=== PATIENT | female | born 2000 | race Two or more races ===

== ENCOUNTER 2025-02-22 10:56 | Emergency (ER) | payer MEDICAID, SELFPAY ==
[2025-02-22 11:22] VITALS: BP 121/79; PULSE 78; RESP 18; TEMP 36.8; O2SAT 98
--- NOTE | 2025-02-22 11:28 | EKG_ITS ---
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
--- NOTE | 2025-02-22 11:29 | PD.EDRME ---
Rapid Medical Screening Exam [facility] Arrival date/time: 02/22/25 10:56 24-year-old female with no known medical history presents to the emergency room with a chief complaint of a syncopal episode that occurred 30 minutes ago. Patient has having nausea and vomiting. Patient is currently . I have greeted and performed a focused initial assessment of this patient. A comprehensive ED assessment and evaluation of the patient, analysis of all test results, and completion of the medical decision making process will be conducted by additional ED providers. Chief Complaint: Nausea/Vomiting/Diarrhea Time Seen by Provider: 02/22/25 11:16 Vital signs: Vital Signs Temperature 98.3 F 02/22/25 11:22 Pulse Rate 78 02/22/25 11:22 Respiratory Rate 18 02/22/25 11:22 Blood Pressure 121/79 02/22/25 11:22 Pulse Oximetry (%) 98 02/22/25 11:22 Oxygen Delivery Method Room Air 02/22/25 11:22 Vital signs reviewed by provider: Yes
[2025-02-22] MEDS: ONDANSETRON ODT 4 MG TABRAP PO (11:34)
[2025-02-22 12:40] LABS: Basophils # (Auto) 0.0 Thou/mm3 (0.0-0.2); Basophils % (Auto) 1 % (0-2.5); Eosinophils # (Auto) 0.0 Thou/mm3 (0.0-0.5); Eosinophils % (Auto) 0 % (0-10); Hematocrit 37.6 % (36.0-46.0); Hemoglobin 12.8 g/dL (12.0-16.0); Immature Granulocytes Auto 0.02 Thou/mm3 (0.00-0.00); Lymphocytes # (Auto) 1.9 Thou/mm3 (1.0-4.8); Lymphocytes % (Auto) 24 % (10-50); Mean Corpuscular HGB Conc 34.0 g/dl (31.0-37.0); Mean Corpuscular Hemoglobin 29.9 pg (25.0-35.0); Mean Corpuscular Volume 88 fL (80-100); Monocytes # (Auto) 0.3 Thou/mm3 (0.0-0.8); Monocytes % (Auto) 4 % (0-12); Neutrophils # (Auto) 5.6 Thou/mm3 (1.8-7.7); Neutrophils % (Auto) 71 % (37-80); Nucleated Red Blood Cell # 0.00 Thou/mm3 (0.00-0.00); Nucleated Red Blood Cell % 0 /100 WBC (0); Platelet Count 242 Thou/mm3 (140-440); RDW Standard Deviation 39.9 fL (36.4-46.3); Red Blood Count 4.28 Miln/mm3 (4.00-5.20); White Blood Count 7.9 Thou/mm3 (3.6-11.0)
[2025-02-22 12:59] LABS: B-Type Natriuretic Peptide 24 pg/mL (0-100)
[2025-02-22 13:01] LABS: Alanine Aminotransferase 11 U/L (10-49); Albumin, Serum 4.5 gm/dL (3.5-5.0); Albumin/Globulin Ratio 2.0 (1.2-2.2); Alkaline Phosphatase 59 U/L (46-116); Anion Gap 10 (7-16); Aspartate Amino Transferase 15 U/L (0-34); BUN/Creatinine Ratio 10 Ratio (12-20); Bilirubin,Total 0.6 mg/dL (0.3-1.2); Blood Urea Nitrogen < 5 mg/dL (9-23); Calcium 9.7 mg/dL (8.3-10.6); Calcium (Corrected) 9.7 mg/dL (8.5-10.1); Carbon Dioxide 23.6 mMol/L (20.0-31.0); Chloride 105 mMol/L (98-107); Creatinine (Component) 0.5 mg/dL (0.6-1.3); Estimated Creatinine Clearance 137.2 mL/min (>60); Globulin 2.3 gm/dL (2.3-3.5); Glucose 78 mg/dL (74-106); Osmolality,Calculated 273 (275-295); Potassium 3.8 mMol/L (3.4-5.1); Sodium 139 mMol/L (136-145); Total Protein 6.8 gm/dL (5.7-8.2); Troponin I < 0.002 ng/mL (0.0-0.045); eGFR > 60 See Note
--- NOTE | 2025-02-22 14:59 | EDNOTE_ITS ---
<Statement entered by Grecia Saldivar MD - 02/22/25 15:44> As co-signing physician, I was present and available for consult prn. I concur with the plan and care as documented by the midlevel provider. ED General RME/HPI General Chief complaint: Nausea/Vomiting/Diarrhea Stated complaint: PASSED OUT 30 MIN AGO, PREG, N/V Time Seen by Provider: 02/22/25 11:16 Source: patient Arrival date/time: 02/22/25 10:56 24-year-old female with no known medical history presents to the emergency room with a chief complaint of a syncopal episode that occurred 30 minutes ago. Patient has having nausea and vomiting. Patient is currently . Mode of arrival: ambulatory Limitations: no limitations RME / HPI RME / HPI narrative: 02/22/25 10:56 24-year-old female with no known medical history presents to the emergency room with a chief complaint of a syncopal episode that occurred 30 minutes ago. Patient has having nausea and vomiting. Patient is currently . I have greeted and performed a focused initial assessment of this patient. A comprehensive ED assessment and evaluation of the patient, analysis of all test results, and completion of the medical decision making process will be conducted by additional ED providers. Related Data Previous Rx's ?Medication ?Instructions ?Recorded ondansetron 4 mg disintegrating 4 mg PO Q8H PRN nausea and 02/22/25 tablet vomiting #14 tabs Allergies Allergy/AdvReac Type Severity Reaction Status Date / Time No Known Allergies Allergy Verified 02/22/25 10:58 Review of Systems Review of Systems Systems Reviewed: All systems reviewed, normal except as documented Constitutional Constitutional: Reports system reviewed and no additional complaints, except as documented, Denies fatigue, Denies fever(s), Denies headache(s) and Denies weakness Eyes Eyes: Reports system reviewed and no additional complaints, except as documented, Denies blurry vision and Denies change in vision ENT Ears, Nose, Mouth, and Throat: Reports system reviewed and no additional complaints, except as documented, Denies otalgia, Denies headache(s), Denies nasal congestion, Denies throat swelling and Denies vertigo Cardiovascular Cardiovascular: Reports system reviewed and no additional complaints, except as documented, Denies chest pain, Denies dyspnea and Denies dyspnea on exertion Respiratory Respiratory: Reports system reviewed and no additional complaints, except as documented, Denies chest congestion, Denies cough, Denies dyspnea, Denies dyspnea on exertion and Denies wheezing Gastrointestinal Gastrointestinal: Reports system reviewed and no additional complaints, except as documented, Denies abdominal pain, Denies cramping, Reports nausea and Reports vomiting Genitourinary Genitourinary: Reports system reviewed and no additional complaints, except as documented Musculoskeletal Musculoskeletal: Reports system reviewed and no additional complaints, except as documented and Denies back pain Integumentary/Breasts Skin/Breast: Reports system reviewed and no additional complaints, except as documented and Denies wounds Neurologic Neurologic: Reports system reviewed and no additional complaints, except as documented, Denies confusion, Denies headache(s), Denies lack of coordination, Denies vertigo and Denies weakness Psychiatric Psychiatric: Reports system reviewed and no additional complaints, except as documented, Denies anxiety, Denies confusion, Denies depression, Denies paranoia, Denies suicidal ideation and Denies tactile hallucinations Endocrine Endocrine: Reports system reviewed and no additional complaints, except as documented and Denies fatigue Hematologic/Lymphatic Hematologic/Lymphatic: Reports system reviewed and no additional complaints, except as documented and Denies lymphadenopathy Allergic/Immunologic Allergic/Immunologic: Reports system reviewed and no additional complaints, except as documented, Denies throat swelling, Denies urticaria and Denies wheezing Past Medical History Past Medical History NEUROLOGIC: Negative Neurological Disorders or Seizures CARDIAC: Negative Cardiac Disorders or Congestive Heart Failure RESPIRATORY: Negative Chronic Obstructive Pulmonary Disease (COPD) or Asthma GASTROINTESTINAL: Negative Gastrointestinal Disorders GENITOURINARY: Negative Renal Disease REPRODUCTIVE: Positive Previous Pregnancies MUSCULOSKELETAL: Negative Musculoskeletal Disorders ENDOCRINE: Negative Endocrine Disorders, Diabetes Mellitus Type 1 or Diabetes Mellitus Type 2 HEMATOLOGIC: Negative Blood Disorders or Sickle Cell Disease PSYCHO/SOCIAL: Positive Behavior Problems OTHER HISTORY: Negative Autoimmune Disease, Blood Transfusions, Blood Transfusion Reaction, Anesthesia Reactions or MRSA Family History FAMILY HISTORY: Positive Family Cardiac Disorders and Family Cancer Surgical History SURGICAL: Negative Section Social History SMOKING STATUS: Never smoker SUBSTANCE USE: does not use ED Exam General Limitations: Present no limitations General appearance: Present alert and in no apparent distress Head Head exam: Present atraumatic Eye Eye exam: Present normal appearance, PERRL and EOMI ENT ENT exam: Present normal exam, normal oropharynx and mucous membranes moist Neck Neck exam: Present normal inspection, full ROM and trachea midline Chest Chest inspection: Present normal inspection and symmetric chest wall rise Respiratory Respiratory exam: Present normal lung sounds bilaterally Cardiovascular Cardiovascular exam: Present regular rate, normal rhythm and normal heart sounds Abdominal Exam Abdominal exam: Present soft and normal bowel sounds; Absent distention, tenderness, guarding, rebound or rigidity Extremities Exam Extremities exam: Present normal inspection and full ROM Back Exam Back exam: Present normal inspection and full ROM Neurological Exam Neurological exam: Present alert, oriented X3 and CN II-XII intact Psychiatric Psychiatric exam: Present normal affect and normal mood Skin Skin exam: Present warm, dry, intact and normal color Course Quality Measures none Orders Category Date Time Status EKG (ED ONLY) *Do not use* NOW Care 02/22/25 11:29 Completed EKG (ED Only) Stat Exams 02/22/25 11:28 Draft BNP [B-Type Natriuretic Peptide] Stat Lab 02/22/25 12:02 Completed CBC Stat Lab 02/22/25 12:02 Completed CMP [Comprehensive Metabolic Panel] Stat Lab 02/22/25 12:02 Completed Troponin I Stat Lab 02/22/25 12:02 Completed Ondansetron Odt [Zofran Odt] Med 02/22/25 11:28 Discontinued 4 mg PO X1 ONE Vital Signs Vital signs: Vital Signs Temperature 98.3 F 02/22/25 11:22 Pulse Rate 78 02/22/25 11:22 Respiratory Rate 18 02/22/25 11:22 Blood Pressure 121/79 02/22/25 11:22 Pulse Oximetry (%) 98 02/22/25 11:22 Oxygen Delivery Method Room Air 02/22/25 11:22 Discharge Plan Plan Patient Disposition: HOME (Self Care) Discharge Disposition comment: Stable Prescriptions/Referrals Prescriptions/Med Rec: New ondansetron 4 mg tablet,disintegrating 4 mg PO Q8H PRN (Reason: nausea and vomiting) Qty: 14 0RF Referrals: Donovan Curtis MD [Primary Care Provider] - In 1 week Problem List Clinical Impression: Vomiting affecting Patient/Caregiver Discharge Instructions Education Materials: ED Vomiting (Adult) Additional Instructions: Please follow-up with your JUMP IRON MACHINE PRESSER in the next 24 to 48 hours Your blood work and cardiac examination was within normal limits Medication was sent to your pharmacy to help you with your nausea and your vomiting For any evidence of worsening signs or symptoms return to the emergency room i mmediately Print Language: Guinean Stand Alone Forms: Felicia Award Info., Patient Portal Info Letter CHRISTIANO/KAREN Supervising Physician TARAH Supervising Physician: Dr. SALDIVAR [facility] Narrative MDM hospital course: 24-year-old female with no known medical history presents to the emergency room with a chief complaint of a syncopal episode that occurred 30 minutes ago. Patient has having nausea and vomiting. Patient is currently . Patient is hemodynamically stable and in no apparent distress. CBC CMP urinalysis are all within normal limits. The patient was given Zofran with improvement of her symptoms Patient was discharged and educated to follow-up with primary care provider in the next 24 to 48 hours and return to the emergency room for any evidence of worsening signs or symptoms Clinical Information Provided by none Medical Records Reviewed None Meds/Rx Considered, not Ordered None Labs/Rad/Tests considered, not Ordered None Chronic Illness/Social Conditions which may negatively complicate care or outcome(s)-explain: None or not applicable EKG EKG not done Lab Interpretation Labs: none Imaging Imaging interpretation: none Medication Administration(s) none Medication Administration History Discontinued Medications Ondansetron HCl (Ondansetron Odt 4 Mg Tabrap) 4 mg PO X1 ONE; Protocol Stop: 02/22/25 11:29 Last Admin: 02/22/25 11:34 Dose: 4 mg Documented By: Diagnosis Differential diagnosis: Hyperemesis gravidarum/nausea vomiting/electrolyte imbalance/hypokalemia Differential dx and/or dx ruled out: Hyperemesis gravidarum/electrolyte imbalance/hypokalemia Most likely dx, and/or detailed dx discussion: Nausea vomiting Dispositon Disposition: Discharge Home
== END 2025-02-22 15:35 | disposition home or self-care (01) ==
PROVIDERS: Nurse Practitioner Family; Emergency Provider Emergency Medicine; PCP Family Medicine
DX: O21.9 Vomiting of pregnancy, unspecified (principal)
CPT/HCPCS: 36415; 80053; 83880; 84484; 85025; 93005; 99283; Q0162

== ENCOUNTER → 2025-04-16 | Outpatient (CLI) | payer MEDICAID, SELFPAY ==
--- NOTE | 2025-04-16 14:30 | XR_ITS ---
Examination: Complete OB ultrasound greater than 14 weeks Date and time of exam: April 16, 2025 1436 hours INDICATIONS: Irregular menses months Findings: Viable intrauterine single fetus with single amniotic sac presentation variable Cardiac motion 141 bpm Placenta anterior grade 1 Umbilical cord insertion seen Amniotic fluid index 11.5 cm Cervix 3.3 cm Ovaries obscured by bowel gas. Composite estimated gestational age based on BPD, head circumference, abdominal circumference, femur length is 16 weeks 5 days Estimated weight 160.5 g. Survey of intracranial anatomy, spinal anatomy, abdominal anatomy, four-chamber heart performed with no abnormalities identified. Impression: Viable intrauterine gestation variable presentation.
== END | disposition home or self-care (01) ==
PROVIDERS: PCP Obstetrics & Gynecology; Referring Provider Obstetrics & Gynecology; Visit Provider Obstetrics & Gynecology
DX: Z34.92 Encounter for supervision of normal pregnancy, unspecified, second trimester (principal); Z3A.16 16 weeks gestation of pregnancy
CPT/HCPCS: 76805

== ENCOUNTER 2025-05-02 13:59 | Emergency (ER) | payer MEDICAID, SELFPAY ==
[2025-05-02 14:11] VITALS: BP 128/80; PULSE 90; RESP 18; TEMP 36.8; O2SAT 98
--- NOTE | 2025-05-02 14:28 | XR_ITS ---
Examination: Complete OB ultrasound greater than 14 weeks Date and time of exam: May 02, 2025, 1503 hours INDICATIONS: Flank pain right-sided pelvic pain beginning today Findings: Viable intrauterine single fetus with single amniotic sac presentation breech Cardiac motion 144 bpm Placenta anterior grade 3 Umbilical cord insertion 3 vessels seen Amniotic fluid volume normal spine maternal right Cervix 3.0 cm Right ovary 2.2 cm arterial flow Left ovary 2.0 cm arterial flow. Composite estimated gestational age based on BPD, head circumference, abdominal circumference, femur length is 18 weeks 6 days Estimated weight 253 g. Survey of intracranial anatomy, spinal anatomy, abdominal anatomy, four-chamber heart performed with no abnormalities identified. Impression: Viable intrauterine gestation in breech presentation.
--- NOTE | 2025-05-02 14:30 | PD.EDRME ---
Rapid Medical Screening Exam E Arrival date/time: 05/02/25 13:59 This is a 24-year-old female that comes in the emergency room with complaints of right flank pain that radiates to her back. Patient is also having nausea vomiting. Patient states she is approximately 19 weeks . Patient is a 3 para 2. I have greeted and performed a focused initial assessment of this patient. Initial appropriate labs ordered at this time. A comprehensive ED assessment and evaluation of the patient and analysis of all test and completion of medical decision making process will be conducted by additional ED provider. Chief Complaint: Back Pain/Injury Time Seen by Provider: 05/02/25 14:13 Vital signs: Vital Signs Temperature 98.2 F 05/02/25 14:11 Pulse Rate 90 05/02/25 14:11 Respiratory Rate 18 05/02/25 14:11 Blood Pressure 128/80 05/02/25 14:11 Pulse Oximetry (%) 98 05/02/25 14:11 Oxygen Delivery Method Room Air 05/02/25 14:11 Exam: Alert and oriented, breathing even and unlabored GCS 15 diffuse lower back pain Clinical Impression: UA, CBC, BMP, lipase, ordered
[2025-05-02] MEDS: ONDANSETRON ODT 4 MG TABRAP PO (14:34)
[2025-05-02 14:58] LABS: Collection Type, Urine Voided; RBC,Urine 0 /hpf (0-3)
[2025-05-02 15:05] LABS: Basophils # (Auto) 0.0 Thou/mm3 (0.0-0.2); Basophils % (Auto) 1 % (0-2.5); Eosinophils # (Auto) 0.0 Thou/mm3 (0.0-0.5); Eosinophils % (Auto) 0 % (0-10); Hematocrit 34.5 % (36.0-46.0); Hemoglobin 11.7 g/dL (12.0-16.0); Immature Granulocytes Auto 0.04 Thou/mm3 (0.00-0.00); Lymphocytes # (Auto) 2.1 Thou/mm3 (1.0-4.8); Lymphocytes % (Auto) 26 % (10-50); Mean Corpuscular HGB Conc 33.9 g/dl (31.0-37.0); Mean Corpuscular Hemoglobin 30.4 pg (25.0-35.0); Mean Corpuscular Volume 90 fL (80-100); Monocytes # (Auto) 0.4 Thou/mm3 (0.0-0.8); Monocytes % (Auto) 5 % (0-12); Neutrophils # (Auto) 5.5 Thou/mm3 (1.8-7.7); Neutrophils % (Auto) 68 % (37-80); Nucleated Red Blood Cell # 0.00 Thou/mm3 (0.00-0.00); Nucleated Red Blood Cell % 0 /100 WBC (0); Platelet Count 258 Thou/mm3 (140-440); RDW Standard Deviation 43.1 fL (36.4-46.3); Red Blood Count 3.85 Miln/mm3 (4.00-5.20); White Blood Count 8.1 Thou/mm3 (3.6-11.0)
[2025-05-02 15:17] LABS: Amorphous Crystals,Urine Present (Absent); Bilirubin,Urine Negative (Negative); Blood,Urine Negative (Negative); Clarity,Urine Turbid (Clear/Hazy); Color,Urine Yellow (Lt Yel-Yel); Culture Indicated,Urine Not Indicated; Glucose, Urine Negative (Negative); Ketones,Urine Negative (Negative); Leukocyte Esterase,Urine Negative (Negative); Nitrite,Urine Negative (Negative); PH,Urine 7.5 (5.0-7.0); Protein,Urine Negative (Neg - Trace); Specific Gravity,Urine 1.017 (1.001-1.035); Squamous Epithelial Cell,Urine 5 /hpf (0-5); Urobilinogen,Urine 2.0 mg/dL (0.0-1.0); WBC,Urine < 1 /hpf (0-5)
[2025-05-02 15:29] LABS: Alanine Aminotransferase 24 U/L (10-49); Albumin, Serum 4.3 gm/dL (3.5-5.0); Albumin/Globulin Ratio 2.3 (1.2-2.2); Alkaline Phosphatase 74 U/L (46-116); Anion Gap 11 (7-16); Aspartate Amino Transferase 22 U/L (0-34); BUN/Creatinine Ratio 13 Ratio (12-20); Bilirubin,Total 0.4 mg/dL (0.3-1.2); Blood Urea Nitrogen < 5 mg/dL (9-23); Calcium 8.9 mg/dL (8.3-10.6); Calcium (Corrected) 8.9 mg/dL (8.5-10.1); Carbon Dioxide 24.3 mMol/L (20.0-31.0); Chloride 105 mMol/L (98-107); Creatinine (Component) 0.4 mg/dL (0.6-1.3); Globulin 1.9 gm/dL (2.3-3.5); Glucose 72 mg/dL (74-106); Lipase 38 U/L (12-53); Osmolality,Calculated 275 (275-295); Potassium 4.0 mMol/L (3.4-5.1); Sodium 140 mMol/L (136-145); Total Protein 6.2 gm/dL (5.7-8.2); eGFR > 60 See Note
--- NOTE | 2025-05-02 15:49 | PD.EDABDPN ---
ED Abdominal Pain RME/HPI General Chief Complaint: Abdominal Pain Stated complaint: PAIN R) SIDE AND BACK X 1 DAY; PREG 19WKS Time seen by provider: 05/02/25 14:13 Arrival date/time: 05/02/25 13:59 RME / HPI RME / HPI narrative: 05/02/25 13:59 This is a 24-year-old female that comes in the emergency room with complaints of right flank pain that radiates to her back. Patient is also having nausea vomiting. Patient states she is approximately 19 weeks . Patient is a 3 para 2. I have greeted and performed a focused initial assessment of this patient. Initial appropriate labs ordered at this time. A comprehensive ED assessment and evaluation of the patient and analysis of all test and completion of medical decision making process will be conducted by additional ED provider. DR. SALDIVAR MAIN ED EVALUATION: 24-year-old female, , approximately 19 weeks , presents to the Emergency Department for right flank pain/ right upper quadrant pain radiating to her lower back that began yesterday. She describes the pain as constant and rated 8/10. She reports associated nausea but no vomiting. She denies fever, chills, urinary symptoms, vaginal bleeding, or contractions. She took Tylenol for pain at home with no relief. No prior medical history or surgical history reported. Related Data Previous Rx's ?Medication ?Instructions ?Recorded ondansetron 4 mg disintegrating 4 mg PO Q8H PRN nausea and 02/22/25 tablet vomiting #14 tabs promethazine 12.5 mg rectal 12.5 mg MT Q6H PRN nausea and 05/02/25 suppository vomiting #12 ea promethazine 12.5 mg tablet 12.5 mg PO TID PRN nausea and 05/02/25 vomiting #20 tabs Allergies Allergy/AdvReac Type Severity Reaction Status Date / Time No Known Allergies Allergy Verified 05/02/25 14:02 Review of Systems Review of Systems Systems Reviewed: All systems reviewed, normal except as documented Past Medical History Past Medical History REPRODUCTIVE: Positive Previous Pregnancies Family History FAMILY HISTORY: Positive Family Cardiac Disorders and Family Cancer Social History SMOKING STATUS: Never smoker SUBSTANCE USE: does not use ALCOHOL: Never ED Exam Narrative Physical exam: GENERAL APPEARANCE: alert and oriented x 4, well-developed, well-nourished, no acute distress VITALS: All vitals were reviewed and the pulse ox is 98% on room air, which is normal according to my interpretation. HEENT: Normocephalic, atraumatic; pupils equal, round, reactive to light; EOMI; mucous membranes pink, moist; oropharynx clear NECK: Supple LUNGS: CTABL; no wheezes, no rales, no rhonchi HEART: Regular rate, regular rhythm; normal S1, S2; no murmurs ABDOMEN: mild right upper quadrant tenderness; no CVA tenderness; bowel sounds present BACK: no CVA tenderness EXTREMITIES: atraumatic; no edema NEUROLOGIC: awake; alert and oriented x4; cranial nerves II-XII grossly intact; no focal sensory or motor deficits PSYCHIATRIC: appropriate mood and affect SKIN: warm, dry, normal color; no rashes Course Quality Measures none Orders Category Date Time Status US OB >= 14 weeks Fetus Stat Exams 05/02/25 14:28 Completed US abdomen limited Stat Exams 05/02/25 16:54 Completed US renal BI Stat Exams 05/02/25 16:54 Completed Beta HCG,Quantitative Stat Lab 05/02/25 14:44 Completed CBC Stat Lab 05/02/25 14:44 Completed Comprehensive Metabolic Panel Stat Lab 05/02/25 14:44 Completed Lipase Stat Lab 05/02/25 14:44 Completed Urinalysis, C/S if Indicated Stat Lab 05/02/25 14:50 Completed Lactulose Syrup [Enulose Syrup] Med 05/02/25 17:03 Discontinued 20 gm PO X1 ONE Ondansetron Odt [Zofran Odt] Med 05/02/25 14:28 Discontinued 4 mg PO X1 ONE oxyCODONE/APAP 5/325 [Percocet 5/325] Med 05/02/25 17:03 Discontinued 1 tab PO X1 ONE Vital Signs Vital signs: Vital Signs Temperature 98.2 F 05/02/25 14:11 Pulse Rate 90 05/02/25 14:11 Respiratory Rate 18 05/02/25 14:11 Blood Pressure 128/80 05/02/25 14:11 Pulse Oximetry (%) 98 05/02/25 14:11 Oxygen Delivery Method Room Air 05/02/25 14:11 Abdominal Pain MDM MDM Narrative MDM Narrative:: I, Jeannette Gambino, seth scribing for and in the presence of Dr. Saldivar. Patient data External records reviewed:: [facility] previous records Clinical information provided by:: patient Social determinants that could affect healthcare access:: none Patient has the following chronic illnesses:: Denies any PMHx, surgeries, daily medications, or known allergies. , approximately 19 weeks . How is presenting disease/condition affected by chronic disease/condition?: no chronic disease Evaluation data The following diagnostics were reviewed and interpreted by me:: lab results and radiology exam(s) Lab and/or radiology exams considered but not ordered:: none Interpretation Summary: Procedure(s): US OB >= 14 weeks Fetus Accession Number(s): [id number] cc: Chavez Hall MD; Eva Espitia NP; Vidhi Pino PA-C~ Examination: Complete OB ultrasound greater than 14 weeks Date and time of exam: May 02, 2025, 1503 hours INDICATIONS: Flank pain right-sided pelvic pain beginning today Findings: Viable intrauterine single fetus with single amniotic sac presentation breech Cardiac motion 144 bpm Placenta anterior grade 3 Umbilical cord insertion 3 vessels seen Amniotic fluid volume normal spine maternal right Cervix 3.0 cm Right ovary 2.2 cm arterial flow Left ovary 2.0 cm arterial flow. Composite estimated gestational age based on BPD, head circumference, abdominal circumference, femur length is 18 weeks 6 days Estimated weight 253 g. Survey of intracranial anatomy, spinal anatomy, abdominal anatomy, four-chamber heart performed with no abnormalities identified. Impression: Viable intrauterine gestation in breech presentation. Dictated By: Chavez Hall MD Medications / Prescriptions Medications or Prescriptions considered but not ordered:: none Medication administrations:: Medication Administration History Discontinued Medications Lactulose (Lactulose Syrup 20 Gm/30 Ml Udc) 20 gm PO X1 ONE; Protocol Stop: 05/02/25 17:04 Last Admin: 05/02/25 17:35 Dose: 20 gm Documented By: APOLONIA Ondansetron HCl (Ondansetron Odt 4 Mg Tabrap) 4 mg PO X1 ONE; Protocol Stop: 05/02/25 14:29 Last Admin: 05/02/25 14:34 Dose: 4 mg Documented By: DICK Oxycodone/Acetaminophen (Oxycodone/Apap 5/325 Tablet) 1 tab PO X1 ONE Stop: 05/02/25 17:04 Last Admin: 05/02/25 17:35 Dose: 1 tab Documented By: DB see above Consultations Consultation(s) initiated? (list below): No Diagnosis Differential diagnosis abdominal pain: other (UTI, pyelonephritis, and biliary colic.) Most likely diagnosis given after review of the tests above:: No official diagnoses at this time, still pending diagnostic tests. Patient signout to the caustic cresylate shift superintendent provider. Admission Indicated Admission indicated?: not indicated Explain why admission is indicated or not indicated:: No final disposition plan at this time, still pending diagnostic tests. Patient signout to the caustic cresylate shift superintendent provider. Admission Request Was there a request for admission?: No Disposition Plan Disposition Plan: other (specify) (Patient signed out to Dr. Sargent, pending abdominal and renal ultrasounds.) Discharge Plan Plan Patient Disposition: HOME (Self Care) Discharge Disposition comment: Stable Prescriptions/Referrals Prescriptions/Med Rec: New promethazine 12.5 mg tablet 12.5 mg PO TID PRN (Reason: nausea and vomiting) Qty: 20 0RF promethazine 12.5 mg suppository 12.5 mg MT Q6H PRN (Reason: nausea and vomiting) Qty: 12 0RF No Action ondansetron 4 mg tablet,disintegrating 4 mg PO Q8H PRN (Reason: nausea and vomiting) Qty: 14 0RF Referrals: Vidhi Pino PA-C [Primary Care Provider, Family Practice] - In 1 week Problem List Clinical Impression: Renal colic Patient/Caregiver Discharge Instructions Discharge Activity: activity as tolerated Diet Instructions: Force fluids Education Materials: Urinary Tract Infections in Women Additional Instructions: Force fluids/medications as directed/follow-up with OPERATING ENGINEER as anticipated. Return if worsening. Print Language: Greenlandic Stand Alone Forms: Felicia Award Info., Patient Portal Info Letter
[2025-05-02 16:06] LABS: Beta HCG,Quantitative 34356 mIU/mL (<5.0)
--- NOTE | 2025-05-02 16:54 | XR_ITS ---
Examination: Abdomen sonogram, Limited Date and time of exam: May 02, 2025, 7803 hours INDICATIONS: Right upper abdominal pain beginning yesterday Technique: Real-time wise scale transabdominal sonographic images of the upper abdomen obtained. Findings: Normal gallbladder. Normal common bile duct 0.3 cm Pancreatic head 2.1 cm Liver 13.2 cm smooth contour no focal liver lesions Normal hepatopetal portal venous flow Patent IVC IMPRESSION: Normal gallbladder
--- NOTE | 2025-05-02 16:54 | XR_ITS ---
Examination: Retroperitoneal ultrasound, complete Technique: Multiple high resolution grayscale images of the retroperitoneum obtained, including kidneys and bladder. Exam date and time: May 02, 2025, 1707 hours INDICATIONS: Onset right sided flank pain beginning yesterday FINDINGS: Right kidney 9.0 cm renal cortex 1.7 cm Minimal dilatation right renal pelvis Left kidney 12.2 cm renal cortex 1.8 cm No renal calculi No bladder mass or bladder calculi Bladder prevoid volume 115 cc IMPRESSION: Minimal dilatation of right renal pelvis, consider right urinary tract infection
[2025-05-02] MEDS: LACTULOSE SYRUP 20 GM/30 ML UDC PO (17:35)
[2025-05-02 17:49] VITALS: BP 116/83; PULSE 85; RESP 18; TEMP 37.3; O2SAT 100
--- NOTE | 2025-05-02 18:08 | PD.EDADDENDU ---
Emergency Room Addendum Addendum Narrative: 1800: Care assumed from Dr. Saldivar, the previous shift emergency physician. Past medical, surgical, social and family history reviewed. Vitals and home medications reviewed. Results and treatment plan discussed. I will assume the care of the patient at this time and will follow the patient. Please refer to the emergency department record for history and examination from initial visit. 24yo female EGA 18 weeks presenting with ongoing right flank pain for which underwent extensive work-up. Labs including CBC and chemistries werer unremarkable. UA without evidence of infection. Imaging performed included pelvic, renal, and gallbladder ultrasounds. Pertinent findings include dilated right renal pelvis based on renal US, which is typically associated with infection and although urine is negative, will consider giving the patient empiric antibiotics. Will discharge the patient home on promethazine for nausea as she appears to be clinically stable with anticipated follow-up by STATISTICAL ANALYST on May 13 as scheduled. Dx: obstructive uropathy RADIOLOGY RESULTS: [facility] Signed Patient: MINDYConvergin. Record#: [id number] Birthdate: 2000 Age/Sex: 24 / F Location: [facility] Attending Dr: Ordering Physician: Grecia Saldivar MD Date of Service: 05/02/25 Procedure(s): US abdomen limited Accession Number(s): [id number] cc: Chavez Hall MD; Grecia Saldivar MD; Vidhi Pino PA-C~ Examination: Abdomen sonogram, Limited Date and time of exam: May 02, 2025, 7803 hours INDICATIONS: Right upper abdominal pain beginning yesterday Technique: Real-time wise scale transabdominal sonographic images of the upper abdomen obtained. Findings: Normal gallbladder. Normal common bile duct 0.3 cm Pancreatic head 2.1 cm Liver 13.2 cm smooth contour no focal liver lesions Normal hepatopetal portal venous flow Patent IVC IMPRESSION: Normal gallbladder Dictated By: Chavez Hall MD Signed By: <Electronically signed by Chavez Hall MD in [place]> 05/02/25 1802 [facility] Signed Patient: MINDYConvergin. Record#: [id number] Birthdate: 2000 Age/Sex: 24 / F Location: [facility] Attending Dr: Ordering Physician: Grecia Saldivar MD Date of Service: 05/02/25 Procedure(s): US renal BI Accession Number(s): [id number] cc: Chavez Hall MD; Grecia Saldivar MD; Vidhi Pino PA-C~ Examination: Retroperitoneal ultrasound, complete Technique: Multiple high resolution grayscale images of the retroperitoneum obtained, including kidneys and bladder. Exam date and time: May 02, 2025, 1707 hours INDICATIONS: Onset right sided flank pain beginning yesterday FINDINGS: Right kidney 9.0 cm renal cortex 1.7 cm Minimal dilatation right renal pelvis Left kidney 12.2 cm renal cortex 1.8 cm No renal calculi No bladder mass or bladder calculi Bladder prevoid volume 115 cc IMPRESSION: Minimal dilatation of right renal pelvis, consider right urinary tract infection Dictated By: Chavez Hall MD Signed By: <Electronically signed by Chavez Hall MD in OV> 05/02/25 1332
== END 2025-05-02 20:11 | disposition home or self-care (01) ==
PROVIDERS: Nurse Practitioner Family; Emergency Provider Emergency Medicine; PCP Physician Assistant
DX: O26.892 Other specified pregnancy related conditions, second trimester (principal); O21.9 Vomiting of pregnancy, unspecified; Z3A.19 19 weeks gestation of pregnancy; N13.9 Obstructive and reflux uropathy, unspecified; N23 Unspecified renal colic
CPT/HCPCS: 36415; 76705; 76770; 76805; 80053; 81001; 83690; 84702; 85025; 99282; Q0162; A9270